=== PATIENT | female | born 1990 | race Caucasian/White ===

== ENCOUNTER 2019-08-21 12:12 | Emergency (ER) | payer OTHER, SELFPAY ==
[2019-08-21 12:28] VITALS: BP 160/100; PULSE 90; RESP 14; TEMP 36.4; O2SAT 97; BMI 32.5
--- NOTE | 2019-08-21 14:31 | ED_ITS ---
HPI - URI/Sore Throat <STEPHON Johnson - Last Filed: 08/22/19 00:03> General Chief Complaint: Upper Respiratory Symptoms Stated Complaint: COUGH SHORTHNESS OF BREATH FEVER A WEEK AGO NO MOR Time Seen by Provider: 08/21/19 14:10 Source: patient Mode of arrival: Ambulatory Limitations: no limitations History of Present Illness HPI Narrative: This is a 29-year-old female, nonsmoker, who presents to ED with flu-like symptoms for 10 days. Patient reports onset of symptoms started with sore throat last week Friday with resolved fever for 7 days, patient continued to have cough, ear pressure and discomfort usually in the morning, sore throat, chest tightness. Patient was seen by her PCP based on her symptoms without testing and she treated herself with [id number] Tylenol and Motrin for fever and discomfort. She developed pink eye and was evaluated by PCP again 5 days ago and discharged to home with antibiotic eyedrops which is improving. Patient denies dyspnea, chest pain, diarrhea, known ill exposure, foreign travel. 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 Otherwise patient is healthy but had not received flu immunization for this season. Related Data Previous Rx's Medication Instructions Recorded amoxicillin 875 mg PO BID 5 Days #10 tab 08/21/19 fluticasone propionate [Flonase 1 spray NASAL BID PRN #9.9 ml 08/21/19 Allergy Relief] Allergies Allergy/AdvReac Type Severity Reaction Status Date / Time No Known Drug Allergies Allergy Verified 08/24/19 13:39 Review of Systems <STEPHON Johnson - Last Filed: 08/22/19 00:03> Review of Systems Narrative: General: Denies fever, chills, fatigue, malaise, sweats. HEENT: See HPI Respiratory: Denies dyspnea, (+) cough, wheezing, hemoptysis, sputum. Cardiovascular: Denies chest pain, palpitations, orthopnea, edema. Gastrointestinal: Denies nausea, vomiting, abdominal pain, diarrhea, constipation, melena. : Denies dysuria, frequency, incontinence, hematuria, urinary retention. Musculoskeletal: Denies weakness, joint pain or bony pain. Skin: Denies rash, skin lesions, or other. Neurologic: Denies weakness, headache, numbness, change in speech, confusion, seizures, incoordination. Psychiatric: No concerning psychosocial issues. 12-point review of systems is negative except for those stated above. Patient History <STEPHON Johnson - Last Filed: 08/22/19 00:03> Medical History (Updated 08/24/19 @ 13:39 by Laura Peralta) History of glomerulonephritis (Acute) History of streptococcal sore throat (Acute) Social History (System 08/24/19 @ 13:39 by Laura Peralta) Smoking Status: Never smoker Smoking Status: Never smoker alcohol intake frequency: holidays/special occasions only Substance Use Type: does not use Exam <STEPHON Johnson - Last Filed: 08/22/19 00:03> Narrative Exam Narrative: GEN: Alert, oriented x 3, well appearing and nourished, and in no acute distress. Head: Normal cephalic, atraumatic. No scalp or temporal tenderness, palpable mass or rash. EYES: Pupils are equal, round, and reactive to light and accommodation. Extraocular muscles are intact bilaterally. There is no subconjunctival hemorrhage, exudate and sclera non-icteric. ENT: Bilateral auditory canals and tympanic membranes dull and injected in right ear, injected left TM.. Hearing grossly intact. Nose without bleeding, purulent discharge or deviation. Turbinates swollen and erythematous. Facial sinuses nontender to palpate. Mucous membrane moist, no mucosal lesion. Throat with erythema, tonsillar hypertrophy without exudate. Uvula in midline, airway patent. Neck: Trachea in midline. No JVD, non-tender without lymphadenopathy. No masses or thyroid megaly. Supple, non-tender and no meningeal signs. CARDIAC: Normal regular rate and rhythm without murmurs, gallops, or rubs. No chest wall tenderness. No peripheral edema, cyanosis or pallor. Capillary refill is less than 2 seconds. RESPIRATORY: Lungs are clear to auscultate bilaterally. Witnessed nonproductive cough during exam, wheezes, rales, or rhonchi. No stridor, respiratory distress, increase work of breathing, or accessary muscle used. ABD: Abdomen soft, nontender and non-distended. No guarding or rebound tenderness to palpate. Bowel sounds are normal in all 4 quadrants. There is no palpable masses or organomegaly. EXT: Full painless ROM of all extremities with no loss of sensation, strength, effusion or edema. SKIN: Warm, dry, normal color for patient. No erythema, lesions or rash over visible areas. BACK: Nontender without deformity or crepitance. No flank tenderness. NEUROLOGICAL: Alert and oriented to place, time and person. Sensation and motor function intact bilaterally. No facial droops, dysphasia. PSYCHIATRIC: Good judgement and reason, without hallucinations, abnormal affect or abnormal behaviors during the examination. Initial Vital Signs Initial Vital Signs: Vital Signs Temperature 97.5 F L 08/21/19 12:28 Pulse Rate 90 08/21/19 12:28 Respiratory Rate 14 08/21/19 12:28 Blood Pressure 160/100 H 08/21/19 12:28 Pulse Oximetry 97 08/21/19 12:28 <Efraín Holcomb MD - Last Filed: 08/27/19 18:01> Initial Vital Signs Initial Vital Signs: Vital Signs Temperature 97.5 F L 08/21/19 12:28 Pulse Rate 90 08/21/19 12:28 Respiratory Rate 14 08/21/19 12:28 Blood Pressure 160/100 H 08/21/19 12:28 Pulse Oximetry 97 08/21/19 12:28 Scores <STEPHON Johnson - Last Filed: 08/22/19 00:03> GCS Lorraine coma scale eye opening: Spontaneous Lorraine coma scale verbal response: Orientated Venita coma scale motor response: Obey commands Venita coma scale total score: 15 Course <STEPHON Johnson - Last Filed: 08/22/19 00:03> Orders Ordered: Discontinued Medications Albuterol (Ventolin Hfa) 2 puff INH NOW ONE Stop: 08/21/19 14:30 Albuterol (Ventolin Hfa Prepack) 1 box MISC SEEINSTR ONE Stop: 08/21/19 15:12 Last Admin: 08/21/19 15:48 Dose: 1 box Documented by: NELIA Dexamethasone (Decadron) 10 mg PO NOW ONE Stop: 08/21/19 15:13 Last Admin: 08/21/19 15:20 Dose: 10 mg Documented by: PADMINI Vital Signs Vital signs: Vital Signs - 8 hr 08/21/19 16:08 Pulse Rate 84 Respiratory Rate 16 Blood Pressure [Left Arm] 137/78 Pulse Oximetry 98 <Efraín Holcomb MD - Last Filed: 08/27/19 18:01> Orders Ordered: Discontinued Medications Albuterol (Ventolin Hfa) 2 puff INH NOW ONE Stop: 08/21/19 14:30 Albuterol (Ventolin Hfa Prepack) 1 box MISC SEEINSTR ONE Stop: 08/21/19 15:12 Last Admin: 08/21/19 15:48 Dose: 1 box Documented by: NELIA Dexamethasone (Decadron) 10 mg PO NOW ONE Stop: 08/21/19 15:13 Last Admin: 08/21/19 15:20 Dose: 10 mg Documented by: PADMINI Vital Signs Vital signs: Vital Signs - 8 hr 08/21/19 16:08 Pulse Rate 84 Respiratory Rate 16 Blood Pressure [Left Arm] 137/78 Pulse Oximetry 98 MDM - URI/Sore Throat <STEPHON Johnson - Last Filed: 08/22/19 00:03> Differential Diagnosis Differential diagnosis: Likely bronchitis, influenza, pharyngitis and other (Otitis media, pneumonia) Medical Records Attestation: I reviewed the patient's medical records. Lab Data Attestation: I reviewed the patient's lab results. Labs: Point of Care Testing Rapid Strep A Negative Imaging Data Chest x-ray: Radiologist's Impression: [address] [id number] XRay Report Signed Patient: EULOGIO HOWELL#: [id number] : 1990Acct:[id number] Age/Sex: 29 / FDate of Service: 08/21/19 Loc: ED Accession Number: [id number] Procedure: XR chest 2V Ordering Provider: Nestor Hendrickson PROCEDURE: XR CHEST 2V INDICATIONS: cough for 10 days, URI sx, TECHNIQUE: 2 views of the chest were acquired. COMPARISON: None. FINDINGS: Surgical changes and devices: None. Lungs and pleura: Lungs are clear. No pleural effusions or pneumothorax. Mediastinum: Mediastinal contours are normal. Heart size is normal. Bones and chest wall: No suspicious bony abnormalities. Soft tissues appear unremarkable. IMPRESSION: Negative for infiltrate. Dictated by: Jona Paris M.D. on 08/21/2019 at 13:50 Approved by: Jona Paris M.D. on 08/21/2019 at 13:50 [facility] Narrative Medical decision making narrative: This is a 29-year-old female who has been ill with flu-like symptoms for 10 days. Patient was evaluated by her primary care physician twice since the illness started. Patient continued to have cough and sore throat without short of breath, chest pain and with resolved fever. Strep throat was negative today. Physical finding of your exam is consistent with otitis media on right-side with dull appearing and injected TM. Throat exam with erythematous and hypertrophic tonsils without exudate. Patient does report ear discomfort especially during morning when she wakes up with sore throat. Chest x-ray does not show any acute findings today. Patient was medicated with 1 dose of Decadron for sore throat and cough. Patient discharged to home and albuterol inhaler for frequent coughing and chest tightness. Patient is treated for otitis media with amoxicillin for 7 day course and Flonase for congestion and ear pressure. Return precautions were discussed with the patient and patient verbalized understanding and agreement with the treatment plan. <Efraín Holcomb MD - Last Filed: 08/27/19 18:01> Lab Data Labs: Point of Care Testing Rapid Strep A Negative Discharge Plan Departure Patient Disposition: Home Clinical Impression: Bronchitis Otitis media Qualifiers: Otitis media type: unspecified Laterality: right Qualified Code(s): H66.91 - Otitis media, unspecified, right ear Discharge Date/Time: 08/21/19 16:12 Instructions: DI for Acute Bronchitis, DI for Middle Ear Infection-Adult Activity Restrictions/Additional Instructions: You have been diagnosed with [right middle ear infection, bronchitis likely from viral in origin. Strep throat swab was negative and chest x-ray does not show acute findings such]. What to do: *Take your medications as directed. you were medicated with 1 dose of Decadron while in ED. you were taught how to use albuterol with a spacer. Please start taking amoxicillin antibiotic medication for otitis media twice a day for next 5 days. Please use Flonase nasal steroid spray for nasal congestion and ear pressure. You can continue to take [id number] Tylenol and or Motrin as needed for fever or discomfort. Please hydrate well and rest. Good hand/cough hydration will help prevent transmitting illness to others. *Follow up with your primary care provider in 2-3 days, call for an appointment. Let them know you were seen in the ED and that we asked you to be seen in follow up. *Return to ED if you have any new, worsening, or concerning symptoms, such as [chest pain, breathing difficulty, unable to tolerate fluids, fever not managed with the medication, or any acute concerns]. Prescriptions: New fluticasone propionate [Flonase Allergy Relief] 50 mcg/actuation spray,suspension 1 spray NASAL BID PRN (Reason: nasal congestion) Qty: 9.9 RF: 0 amoxicillin 875 mg tablet 875 mg PO BID 5 Days Qty: 10 RF: 0
[2019-08-21] MEDS: DEXAMETHASONE 10 MG/ML VIAL PO (15:20)
[2019-08-21 15:32] VITALS: BP 124/82; PULSE 85; RESP 14; O2SAT 100
[2019-08-21] MEDS: ALBUTEROL HFA PREPACK 1 BOX MISC (15:48)
[2019-08-21 16:08] VITALS: BP 137/78; PULSE 84; RESP 16; O2SAT 98
== END 2019-08-21 16:12 | disposition home or self-care (01) ==
PROVIDERS: Emergency Provider Nurse Practitioner Family
DX: J40 Bronchitis, not specified as acute or chronic (principal); H66.91 Otitis media, unspecified, right ear
CPT/HCPCS: 71046; 87880; 99283; J1100